=== PATIENT | female | born 1985 | race Caucasian/White ===

== ENCOUNTER 2019-10-07 13:19 | Emergency (ER) | payer OTHER, SELFPAY ==
[2019-10-07 14:00] VITALS: BP 112/65; PULSE 116; RESP 14; TEMP 37.9; O2SAT 100
--- NOTE | 2019-10-07 14:32 | PC.NURSE ---
STREP SWAB AND INFLUENZA SWAB SENT TO LAB AT THIS TIME BY LINN ODELL
[2019-10-07 14:57] LABS: Influenza Control Valid (Valid)
--- NOTE | 2019-10-07 14:57 | ED.GENADULT ---
HPI - General Adult General Chief complaint: Upper Respiratory Infection Stated complaint: possible strep throat Source: patient and family Mode of arrival: ambulatory History of Present Illness HPI narrative: 33-year-old female presents with sore throat of low-grade fevers and chills with a tender bilateral submandibular glands with no shortness of breath no nausea vomiting no abdominal pain no rash no chest pressure. Onset (ago): day(s) Location: mouth Radiation: non-radiation Severity: moderate Severity scale (1-10): 5 Quality: aching Pain Consistency: constant Exacerbating factors: none Related Data Home Medications Medication Instructions Recorded Confirmed buspirone 10 mg PO DAILY 10/07/19 10/07/19 famotidine 20 mg PO DAILY 10/07/19 10/07/19 linagliptin [Tradjenta] 5 mg PO DAILY 10/07/19 10/07/19 lisinopril 20 mg PO DAILY 10/07/19 10/07/19 metoprolol tartrate 25 mg PO BID 10/07/19 10/07/19 topiramate 50 mg PO DAILY 10/07/19 10/07/19 Allergies Allergy/AdvReac Type Severity Reaction Status Date / Time diphenhydramine Allergy Mild ITCHING Unverified 07/04/19 16:12 Review of Systems Review of Systems: All systems reviewed & are unremarkable except as noted in HPI and below PMFSH Past Medical History Medical History Diabetes mellitus Exam Const: General: no acute distress and alert Orientation/consciousness: patient oriented x3 Eyes: Conjunctivae: conjunctivae normal Pupils: Equal, round and reactive pupils present Neck: Neck: normal visual inspection Chest: Chest palpation & inspection: normal inspection of the chest Resp: Effort & Inspection: normal respiratory effort Cardio: Rate: regular rate Rhythm: regular rhythm GI: GI Palp: Yes Soft to palpation Back/Spine/Pelvis: Back: no CVA tenderness Course Vital Signs Vital signs: Vital Signs Temperature 37.9 C H 10/07/19 14:00 Pulse Rate 116 H 10/07/19 14:00 Respiratory Rate 14 10/07/19 14:00 Blood Pressure 112/65 10/07/19 14:00 Pulse Oximetry 100 10/07/19 14:00 Temperature 37.9 C H 10/07/19 14:00 Pulse Rate 116 H 10/07/19 14:00 Respiratory Rate 14 10/07/19 14:00 Blood Pressure 112/65 10/07/19 14:00 Pulse Oximetry 100 10/07/19 14:00 Medical Decision Making Vital Signs Vital Signs: Vital Signs Temperature 37.9 C H 10/07/19 14:00 Pulse Rate 116 H 10/07/19 14:00 Respiratory Rate 14 10/07/19 14:00 Blood Pressure 112/65 10/07/19 14:00 Pulse Oximetry 100 10/07/19 14:00 Temperature 37.9 C H 10/07/19 14:00 Pulse Rate 116 H 10/07/19 14:00 Respiratory Rate 14 10/07/19 14:00 Blood Pressure 112/65 10/07/19 14:00 Pulse Oximetry 100 10/07/19 14:00 Lab Data Labs: Lab Results 10/07/19 Range/Units 14:28 Influenza Type A Ag Pending Influenza Type B Ag Pending Group B Strep Antigen Positive A Critical Care Time Critical Care Time Critical Care Time: No Discharge Plan Discharge Clinical Impression: Strep throat Patient Disposition: Home, Self-Care Condition: Stable Instructions: Antibiotic Form Prescriptions: New amoxicillin-pot clavulanate [Augmentin] 875-125 mg tablet 1 tablet PO Q12H Qty: 20 RF: 0 No Action lisinopril 20 mg tablet 20 mg PO DAILY RF: 0 famotidine 20 mg tablet 20 mg PO DAILY RF: 0 buspirone 10 mg tablet 10 mg PO DAILY RF: 0 metoprolol tartrate 25 mg tablet 25 mg PO BID RF: 0 topiramate 50 mg tablet 50 mg PO DAILY RF: 0 Tradjenta 5 mg tablet 5 mg PO DAILY RF: 0 Follow-up/Referrals: Rudy,ELENA Macdonald [Primary Care Provider] - Stand Alone Forms: Work/School Release IP Time of Disposition: 15:04
[2019-10-07 15:08] VITALS: RESP 14; O2SAT 100
== END 2019-10-07 15:09 | disposition home or self-care (01) ==
PROVIDERS: Emergency Provider Emergency Medicine; PCP Physician Assistant
DX: J02.0 Streptococcal pharyngitis (principal)
CPT/HCPCS: 87077; 87081; 87804; 87880; 99283